=== PATIENT | male | born 1975 | race American Indian/Alaskan Native ===

== ENCOUNTER 2018-03-07 05:45 | Day surgery (SDC) | payer OTHER ==
[2018-03-07] MEDS ORDERED: DIBUCAINE30 GM RECTAL (09:28)
[2018-03-07] MEDS ORDERED: PERCOCET 5-3251 EACH PO (09:28)
== END 2018-03-07 19:40 | disposition home or self-care (01) ==
LOC: CIR.AMB 05:45
DX: K64.8 Other hemorrhoids (principal); K64.4 Residual hemorrhoidal skin tags; K64.3 Fourth degree hemorrhoids